=== PATIENT | female | born 1990 | race Hispanic/Latino ===

== ENCOUNTER 2017-02-24 05:03 | Inpatient (IN) ==
[2017-02-23 12:05] LABS: MANUAL DIFF NEEDED? NO
[2017-02-23 12:30] LABS: BASO% 0.2 % (0.0-0.8); EOS# 0.04 X1000 (0.0-0.7); EOS% 0.5 % (0.0-10.0); HEMATOCRIT 37.6 % (37.0-47.0); HEMOGLOBIN 12.8 g/dL (12.0-16.0); IMM GRAN# 0.02 X1000 (0.0-0.04); IMM GRAN% 0.2 % (0.0-0.5); LYMPH# 1.49 X1000 (1.2-3.4); LYMPH% 17.4 % (20.5-51.1); MCH 29.3 PG (27-31); MONO# 0.61 X1000 (0.11-0.59); MONO% 7.1 % (1.7-9.3); MPV 9.9 FL (7.4-10.4); NEUT% 74.6 % (42.2-75.2); PLT 232 X1000 (130-400); RBC 4.37 XMIL (4.2-5.4)
[2017-02-24] MEDS ORDERED: LR 1,000 ML IV SCH ×2 (05:09→14:05)
[2017-02-24] MEDS ORDERED: KEFZOL 1 GM/D5W 1 GM/50 ML IVPB IV PRN (05:09)
[2017-02-24] MEDS ORDERED: PEPCID IV ONE (05:12)
[2017-02-24] MEDS ORDERED: SODIUM CHLORIDE 0.9% INJ ONE (05:12)
[2017-02-24] MEDS ORDERED: BICITRA PO ONE (05:12)
[2017-02-24 05:45] LABS: URINE SOURCE VOIDED
[2017-02-24 06:02] LABS: BILIRUBIN URINE NEGATIVE (NEGATIVE); BLOOD URINE NEGATIVE (NEGATIVE); CLARITY CLEAR (CLEAR); COLOR YELLOW; GLUCOSE URINE NEGATIVE (NEGATIVE); LEUKOCYTES URINE NEGATIVE (NEGATIVE); NITRITE URINE NEGATIVE (NEGATIVE); PROTEIN URINE TRACE mg/dL (NEGATIVE); UROBILINOGEN URINE NORMAL
[2017-02-24 06:04] LABS: UR AMPHETAMINES QUAL NONE DETECTED (NONE DETECT); UR BARBITUATES QUAL NONE DETECTED (NONE DETECT); UR BENZODIAZEPIN QUAL NONE DETECTED (NONE DETECT); UR CANNABINOIDS QUAL NONE DETECTED (NONE DETECT); UR COCAINE QUAL NONE DETECTED (NONE DETECT); UR MDMA QUAL NONE DETECTED (NONE DETECT); UR METHADONE QUAL NONE DETECTED (NONE DETECT); UR METHAMPHETAMINE QUAL NONE DETECTED (NONE DETECT); UR OPIATES QUAL NONE DETECTED (NONE DETECT); UR OXYCODONE QUAL NONE DETECTED (NONE DETECT); UR PCP QUAL NONE DETECTED (NONE DETECT); UR TCA QUAL NONE DETECTED (NONE DETECT)
[2017-02-24] MEDS ORDERED: DURAMORPH ONE (06:55)
[2017-02-24] MEDS ORDERED: NEO-SYNEPHRINE ONE (07:00)
[2017-02-24] MEDS ORDERED: SODIUM CHLORIDE 0.9% 10 ML ONE ×2 (07:00→07:02)
[2017-02-24] MEDS ORDERED: PITOCIN ONE ×2 (07:02→07:24)
[2017-02-24] MEDS ORDERED: M-M-R II VACCINE SUBQ ONE (07:05)
[2017-02-24] MEDS ORDERED: PITOCIN 20 UNITS/LR 20 UNITS/1,000 ML IV.SOLN IV ONE (07:05)
[2017-02-24] MEDS ORDERED: DEMEROL PO PRN ×2 (07:05)
[2017-02-24] MEDS ORDERED: PHENERGAN IM PRN (07:05)
[2017-02-24] MEDS ORDERED: AMBIEN PO PRN (07:05)
[2017-02-24] MEDS ORDERED: HYDROXYZINE IM PRN (07:05)
[2017-02-24] MEDS ORDERED: DULCOLAX PR PRN (07:05)
[2017-02-24] MEDS ORDERED: CYTOTEC PO PRN (07:05)
[2017-02-24] MEDS ORDERED: PERCOCET-5 PO PRN (07:05)
[2017-02-24] MEDS ORDERED: BOOSTRIX VACCINE IM ONE (07:05)
[2017-02-24] MEDS ORDERED: HYDROXYZINE PO PRN ×2 (07:05→14:05)
[2017-02-24] MEDS ORDERED: DEMEROL IM PRN (07:05)
[2017-02-24] MEDS ORDERED: PITOCIN IM PRN (07:05)
[2017-02-24] MEDS ORDERED: PITOCIN 10 UNITS/LR 10 UNIT/1,000 ML IV.SOLN IV SCH (07:15)
[2017-02-24] MEDS ORDERED: ZOFRAN ONE (07:32)
[2017-02-24] MEDS ORDERED: TORADOL ONE (07:32)
[2017-02-24] MEDS ORDERED: NARCAN INJ PRN (08:25)
[2017-02-24] MEDS ORDERED: ZOFRAN IV PRN ×2 (08:25)
[2017-02-24] MEDS ORDERED: BENADRYL IV PRN ×2 (08:25→14:05)
[2017-02-24] MEDS ORDERED: ZOFRAN ODT PO PRN (08:25)
[2017-02-24] MEDS ORDERED: DEMEROL IV PRN (08:26)
[2017-02-24] MEDS: MORPHINE IV PRN ×2 (10:20→11:55)
[2017-02-24] MEDS: MYLICON PO SCH ×4 (10:26→20:11)
[2017-02-24] MEDS: TORADOL IV SCH ×2 (13:18→20:10)
[2017-02-24] MEDS ORDERED: NARCAN IV PRN (14:05)
[2017-02-24] MEDS: MORPHINE PCA IV PRN (14:17)
[2017-02-24] MEDS: PERICOLACE PO SCH (20:10)
[2017-02-25] MEDS: TORADOL IV SCH (00:54)
[2017-02-25] MEDS: MORPHINE PCA IV PRN (03:33)
[2017-02-25 06:15] LABS: HEMATOCRIT 29.6 % (37.0-47.0); HEMOGLOBIN 9.7 g/dL (12.0-16.0); MCH 28.8 PG (27-31); MCHC 32.8 g/dL (33-37); MCV 87.8 FL (81-99); RBC 3.37 XMIL (4.2-5.4)
[2017-02-25] MEDS ORDERED: LR 1,000 ML IV SCH (07:05)
[2017-02-25] MEDS ORDERED: HYDROXYZINE PO PRN (07:54)
[2017-02-25] MEDS: MYLICON PO SCH ×5 (08:17→20:07)
[2017-02-25] MEDS: MOTRIN PO PRN ×2 (11:46→20:07)
[2017-02-25] MEDS: PERCOCET-10 PO PRN ×4 (11:46→23:16)
[2017-02-25] MEDS: PERICOLACE PO SCH (20:07)
[2017-02-25] MEDS: MYLICON PO PRN (23:16)
[2017-02-26] MEDS: PERCOCET-10 PO PRN ×6 (02:25→22:10)
[2017-02-26] MEDS: MYLICON PO PRN ×2 (02:25→05:39)
[2017-02-26] MEDS: MOTRIN PO PRN ×3 (04:36→22:10)
[2017-02-26] MEDS: MYLICON PO SCH ×6 (08:40→20:26)
[2017-02-26] MEDS: PERICOLACE PO SCH (20:26)
[2017-02-27] MEDS: PERCOCET-10 PO PRN ×2 (04:28→07:24)
[2017-02-27] MEDS: MOTRIN PO PRN (07:23)
[2017-02-27 08:15] VITALS: BP 108/69
[2017-02-27] MEDS: MYLICON PO SCH (09:00)
== END 2017-02-27 10:40 | disposition home or self-care (01) ==
LOC: P.LD 05:03 → P.WC 09:52
PROVIDERS: ADMIT Obstetrics & Gynecology; ATTEND Obstetrics & Gynecology